=== PATIENT | male | born 1980 | race Caucasian/White ===

== ENCOUNTER 2022-10-17 06:38 | Emergency (ER) | payer MEDICARE, SELFPAY ==
[2022-10-17] VITALS (8 sets, daily range): BP systolic 118–136; BP diastolic 68–86; PULSE 66–127; RESP 14–18; TEMP 36.6; O2SAT 97–99
--- NOTE | 2022-10-17 07:16 | PC.NURSE ---
spoke to pt's brother Theodore at . brother stated he picked up pt in [place] in June and has been living in the camper in the brother's backyard. pt's brother reports pt kicks and screams and does not feel safe having him around his children. he states he has been off his meds for a very long time and wants him to get help.
[2022-10-17 07:40] LABS: Basophils Percent Auto 0.2 % (0.2-1.2); Eosinophils Absolute Auto 0.1 K/mm3 (0-0.3); Eosinophils Percent Auto 0.9 % (0-4.4); Hematocrit 43.5 % (42.0-52.0); Hemoglobin 14.7 g/dL (14.0-18.0); Immature Granulocyte Absolute 0.02 K/mm3 (0.00-0.031); Immature Granulocyte Percent A 0.2 % (0-0.5); Lymphocytes Absolute Auto 2.02 K/mm3 (0.9-3.2); Lymphocytes Percent Auto 23.8 % (18.3-44.2); Mean Corpuscular HGB Conc 33.8 g/dl (32-36); Mean Corpuscular Hemoglobin 30.7 pg (26-34); Mean Corpuscular Volume 90.8 fl (80-100); Mean Platelet Volume 9.2 fl (7.4-10.4); Monocytes Absolute Auto 0.6 K/mm3 (0.1-0.6); Monocytes Percent Auto 7.1 % (2.6-8.5); Neutrophils Absolute Auto 5.8 K/mm3 (1.3-6.7); Neutrophils Percent Auto 67.8 % (45.5-73.1); Platelet Count Result 200 k/mm3 (150-375); Red Blood Count 4.79 M/mm3 (4.6-6.20); White Blood Count 8.5 K/mm3 (4.5-10.0)
[2022-10-17 07:41] LABS: Appearance Urine Clear (Clear); Bilirubin Urine Negative (Negative); Blood Urine Negative (Negative); Color Urine Yellow (Yellow); Glucose Urine UA Negative (Negative); Ketones Urine Negative (Negative); Leukocyte Esterase Ur Negative LEU/UL (Negative); Nitrate Urine Negative (Negative); Protein Urine Negative (Negative); Specific Grav Ur 1.004 (1.001-1.035); Urobilinogen Urine 0.2 mg/dL (<2.0)
[2022-10-17 07:50] LABS: Add Urine Microscopic? NO; Ethanol < 10 mg/dL (<10)
[2022-10-17 07:51] LABS: Alanine Aminotransferase 30 U/L (6-50); Albumin Level 4.5 g/dL (3.5-5.1); Alkaline Phosphatase 73 U/L (38-126); Anion Gap 4 mmol/L (8-16); Aspartate Amino Transferase 33 U/L (17-59); Bilirubin,Total 0.4 mg/dL (0.2-1.3); Blood Urea Nitrogen 11 mg/dL (9-20); Carbon Dioxide 32 mmol/L (22-30); Chloride 104 mmol/L (98-107); Estimated CRCL calculation 134 ml/min; Estimated Glomerular Filt Rate > 60; Glucose 72 mg/dL (65-110); Potassium 4.1 mmol/L (3.4-5.0); Sodium 140 mmol/L (137-145)
[2022-10-17 08:17] LABS: Influenza A QL RT-PCR Negative (Negative); Influenza B QL RT-PCR Negative (Negative); RSV RNA, RT-PCR Negative (Negative); SARS-CoV-2 RNA PCR Negative (Negative)
[2022-10-17 08:24] LABS: Amphetamine Screen Urine Negative (Negative); Barbiturate Screen Urine Negative (Negative); Benzodiazepines Screen Urine Negative (Negative); Cannabinoid Screen Urine Positive (Negative); Cocaine Screen Urine Negative (Negative); Methadone Screen Urine Negative (Negative); Opiate Screen Urine Negative (Negative); Phencyclidine Screen Urine Negative (Negative)
[2022-10-17] MEDS: QUEtiapine FUMARATE 100 MG TABLET 400 MG PO (12:18)
[2022-10-17] MEDS: LITHIUM CARBONATE 300 MG CAPSULE 600 MG PO (12:19)
--- NOTE | 2022-10-17 12:58 | ED.GENADULT ---
HPI - General Adult General Chief complaint: Unspecified Stated complaint: back discomfort Time Seen by Provider: 10/17/22 07:12 Source: EMS Mode of arrival: EMS Limitations: clinical condition History of Present Illness HPI narrative: 45-year-old with a history of schizophrenia was brought in from his brother house who is presently living in a trailer behind his house with the complaints of back pain however patient upon arrival is extremely psychotic in nature his speech is tangential he states that he is moved from [place] and he has no way to go back home. No significant history can be obtained from the patient because of his mental status. However talking to his mother who is residing in a [facility] patient has been off his medication Seroquel and lithium for quite some time. His brothers mention to the nurse stating that he is very aggressive at times and he is very scared to bring him back home. He has not been able to take care of himself. Patient states that he has not eaten for last several days as he has no food at home. Related Data Allergies Allergy/AdvReac Type Severity Reaction Status Date / Time risperidone [From Risperdal] AdvReac Unknown Verified 10/17/22 11:40 Review of Systems Review of Systems: ROS unobtainable: Yes unobtainable due to mental status Exam Narrative: GENERAL: Unkempt, and in no acute distress. HEAD: Normocephalic, atraumatic. EYES: PERRLA and EOMI. ENT: Multiple caries teeth NECK: Supple. CHEST: Clear to auscultation. No respiratory distress. HEART: Regular rate and rhythm. No murmur heard. Normal peripheral pulses. ABDOMEN: Soft, nontender, nondistended, normal active bowel sounds. EXTREMITIES: Normal range of motion. No edema. SKIN: Warm, dry, no rash. NEURO: No focal deficits. Alert and oriented x2 PSYCH: Patient constantly talking to himself his speech is tangential and pressured and no insight Course Course Emergency Course: Patient most part is directional but he has been constantly talking to himself in the room. He was given Seroquel and lithium. His mother stated that Risperdal and Zyprexa makes him aggressive. We did contact behavioral health, I did fill in the affidavit for him to be placed in a psychiatric facility Vital Signs Vital signs: Vital Signs Temperature 36.6 C 10/17/22 06:43 Pulse Rate 66 10/17/22 06:43 Respiratory Rate 16 10/17/22 06:43 Blood Pressure 136/86 10/17/22 06:43 Pulse Oximetry 99 10/17/22 06:43 Oxygen Delivery Room Air 10/17/22 06:43 Temperature 36.6 C 10/17/22 06:43 Pulse Rate 127 H 10/17/22 13:51 Respiratory Rate 14 10/17/22 14:47 Blood Pressure 121/77 10/17/22 13:51 Pulse Oximetry 99 10/17/22 13:51 Oxygen Delivery Room Air 10/17/22 06:43 Medical Decision Making MDM Narrative Medical decision making narrative: 41-year-old with a history of schizophrenia now appears to be his decompensated state we check lab consult behavioral health. Vital Signs Vital Signs: Vital Signs Temperature 36.6 C 10/17/22 06:43 Pulse Rate 66 10/17/22 06:43 Respiratory Rate 16 10/17/22 06:43 Blood Pressure 136/86 10/17/22 06:43 Pulse Oximetry 99 10/17/22 06:43 Oxygen Delivery Room Air 10/17/22 06:43 Temperature 36.6 C 10/17/22 06:43 Pulse Rate 127 H 10/17/22 13:51 Respiratory Rate 14 10/17/22 14:47 Blood Pressure 121/77 10/17/22 13:51 Pulse Oximetry 99 10/17/22 13:51 Oxygen Delivery Room Air 10/17/22 06:43 Lab Data 10/17/22 07:30 10/17/22 07:30 Labs: Lab Results 10/17/22 Range/Units 07:30 WBC 8.5 (4.5-10.0) K/mm3 RBC 4.79 (4.6-6.20) M/mm3 Hgb 14.7 (14.0-18.0) g/dL Hct 43.5 (42.0-52.0) % MCV 90.8 (80-100) fl MCH 30.7 (26-34) pg MCHC 33.8 (32-36) g/dl RDW 13.0 (11.5-14.5) % Plt Count 200 (150-375) k/mm3 MPV 9.2 (7.4-10.4) fl Immature Gran % (Auto) 0.2 (0-0.5) % Neut % (Auto) 67
--- NOTE | 2022-10-17 12:59 | PC.NURSE ---
Medically cleared by Dr. Powell, pt in room on cot watching TV. Pt just finished lunch tray and had breakfast tray this AM. Pt constantly talks to self. I can make out only a few words at a time when talking with pt. He rambles, repeats and rhymes words and has word salad. Pt is not aggressive and easily redirected when talking to loud of walks out of room. Pt reports he was hungry because he was used to eating 3 meals a day and has been only getting 1 meal a day. In room at this time watching TV waiting for placement
--- NOTE | 2022-10-17 13:14 | PC.NURSE ---
Pt taken to shower as requested, energy technician and security in assist.
--- NOTE | 2022-10-17 13:23 | PC.NURSE ---
Pt friend Melinda Storm called requesting update on pt and pt status. States he called from the room and she was unable to understand him. Requesting info on pt in order to help him. Pt currently in shower w/ security and unable to obtain verbal consent to provide info to family friend as requested. Please call back w/ update pending pts consent. Melinda Storm [phone]
--- NOTE | 2022-10-17 13:39 | PC.NURSE ---
Pt exited ER sliding doors w/ green scrubs. ED security found pt in the parking lot and assisted him back to room 7. Pt is alert and asking for lights to be dimmed so he could rest. Lights dimmed.
[2022-10-17] MEDS: LORazepam INJ (*CRX) 2 MG/ML VIAL IM (13:51)
--- NOTE | 2022-10-17 15:47 | PC.NURSE ---
patient accepted at [facility]. Call [phone] for report. they will give a bed number and accepting physician when report is called.
--- NOTE | 2022-10-17 16:23 | PC.NURSE ---
Spoke to Cyndee juan/ [facility] at [phone] to notify pt no longer needs a bed due to was accepted at [facility].
--- NOTE | 2022-10-17 16:45 | PC.NURSE ---
Dinner tray ordered for pt.
== END 2022-10-17 18:35 ==
PROVIDERS: Emergency Provider Family Medicine
DX: F23 Brief psychotic disorder (principal); Z20.822 Contact with and (suspected) exposure to COVID-19; T43.596A Underdosing of other antipsychotics and neuroleptics, initial encounter
CPT/HCPCS: 36415; 80053; 80307; 81003; 84443; 85025; 87637; 96372; 99285; A9270; J2060